=== PATIENT | male | born 1945 | race Caucasian/White ===

== ENCOUNTER 2017-02-20 17:39 | Inpatient (IN) | payer OTHER ==
[~2017-02-20] VITALS: Ht 175.3 cm; Wt 115.7 kg
--- NOTE | ~2017-02-20 | EKG ---
[place], [place] ELECTROCARDIOGRAM REPORT NAME: JILLIAN CARDONA UNIT #: [id number] ROOM: 425 DOCTOR: SRIKANTH PATINO MD BIRTHDATE: [birth year] DOS: 02/20/2017 TIME: 1816 FINDINGS: Normal sinus rhythm at a rate of 84. Normal electrocardiogram. SRIKANTH PATINO MD CM:EKGRPT:ELECTROCARDIOGRAM REPORT [id number] SRIKANTH PATINO MD
--- NOTE | ~2017-02-20 | O ---
[place], [place] OPERATIVE NOTE NAME: JILLIAN CARDONA UNIT #: [id number] ROOM: 425 DOCTOR: TAYO ALVAREZ MD BIRTHDATE: [birth year] DOS: GASTROENDOSCOPIC REPORT INDICATIONS: The patient has presented with multiple medical issues, among which was his anemia, drop in H and H, status post periodic observation of the blood count. This gentleman is 71 years old, obese. The patient has been guaiac positive. PAST MEDICAL HISTORY: Hyperlipidemia, diabetes mellitus, hypertension, obesity, osteoarthritis, renal insufficiency. PAST SURGICAL HISTORY: Appendectomy, back pain, inguinal hernia, unilateral nephrectomy. SOCIAL HISTORY: Passive smoker. Nonalcohol consumer. FAMILY HISTORY: Noncontributory. ALLERGIES: No known medication. MEDICATIONS: Medication list has been reviewed including aspirin. PROCEDURE: Today's procedure part of investigation is panendoscopy and colonoscopy. PREMEDICATION: Versed and Diprivan. SCOPE: Olympus forward-viewing colonoscope 10L video. REPORT: After putting the patient in the left lateral position and after application of lubricant to rectal pouch and digital examination, scope was introduced. Thereafter, under direct visualization, I advanced through the length of colon without difficulty. Diverticulosis of moderate degree was appreciated, mostly in left colon. Scope was negotiated to the base of cecum, ileocecal valve was defined, gradually withdrawn from ascending, transverse, descending colon. The patient extubated, tolerated procedure well. IMPRESSION: Diverticulosis of left colon, status post photographic series; short segment nonspecific colitis in sigmoid colon, status post biopsy. PLAN AND DISCUSSION: We are going to proceed with panendoscopy. [place], [place] OPERATIVE NOTE NAME: JILLIAN CARDONA UNIT #: [id number] ROOM: 425 DOCTOR: TAYO ALVAREZ MD BIRTHDATE: [birth year] TAYO ALVAREZ MD CM:OPRECORD:OPERATIVE NOTE 1122 1503 TAYO ALVAREZ MD 02/22/17 1504 interface
--- NOTE | ~2017-02-20 | O ---
[place], [place] OPERATIVE NOTE NAME: JILLIAN CARDONA UNIT #: [id number] ROOM: 425 DOCTOR: TAYO ALVAREZ MD BIRTHDATE: [birth year] DOS: GASTROENDOSCOPIC REPORT INDICATIONS: The patient has presented with chief complaint of epigastric abdominal pain, anemia, drop in H and H, undergoing investigation. PROCEDURE: Today's procedure part of investigation is panendoscopy plus biopsy and photographic series. PREMEDICATION: Versed and Diprivan. SCOPE: Olympus forward-viewing gastroscope Q10 video. REPORT: After putting the patient in the left lateral position and after application of lubricant to the scope, the scope was introduced. Thereafter, under direct visualization, I advanced through the length of esophagus without difficulty. Gastric pouch was entered. Evidence of gastritis, gastric erosions and an antral ulceration approximately 1.5 cm in diameter in about antrum. Photographed and biopsied. Duodenal bulb, second and third part within normal limits. The patient extubated, tolerated procedure well. IMPRESSION: Gastritis, gastric erosion, antral ulcer, status post biopsy. PLAN: Protonix 40 mg daily. The culprit as far as source of blood loss is upper GI finding. We are going to continue with chronic PPI therapy on this patient. Observation of H and H tomorrow, clinical reassessment. TAYO ALVAREZ MD CM:OPRECORD:OPERATIVE NOTE 1122 1504 TAYO ALVAREZ MD 02/22/17 1505 interface
[~2017-02-20 17:39] MED LIST: ALBUTEROL2.5 MG/0.5 INH; ASPIRIN325 MG PO; BENADRYL25 MG PO; CIPRO250 MG PO; DELTASONE5 MG; DOXYCYLINE50 MG PO; GLIPIZIDE10 MG PO; HYDROCHLOROTH12.5 M1 PO; LANTUS100 U/ML; LANTUS100 U/ML SC; METICORTEN1 MG; METOPROLOL SR50 MG PO; MUCINEX600 MG PO; NOVOLOG100 U/ML SC; SIMVASTATIN20 MG PO; SPIRIVA18 MCG IH
[2017-02-20 17:50] VITALS: BP 112/74
[2017-02-20] MEDS ORDERED: GLIPIZIDE10 M2 PO (17:52)
[2017-02-20 18:12] LABS: BASO % 0.4 % (0.0-1.0); EOS # 0.1 10*3/uL (0.0-0.4); EOS % 0.7 % (1.0-4.0); HEMATOCRIT 47.5 % (42.0-52.0); HEMOGLOBIN 15.5 g/dl (14.0-18.0); LYMPH # 2.4 10*3/uL (1.3-4.4); LYMPH % 26.4 % (27.0-41.0); MEAN CELL VOLUME 96.3 fl (80.0-94.0); MEAN CORPUSCULAR HGB 31.4 pg (27.0-31.0); MEAN CORPUSCULAR HGB CONC 32.6 g/dl (33.0-37.0); MEAN PLATELET VOLUME 9.3 fl (9.6-12.3); MONO # 0.8 10*3/uL (0.1-1.0); MONO % 8.6 % (3.0-9.0); NEUT # 5.8 10*3/uL (2.3-7.9); NEUT % 63.7 % (47.0-73.0); PLATELET COUNT AUTOMATED 206 10*3/uL (130-400); RED BLOOD COUNT 4.93 10*6/uL (4.50-5.90); RED CELL DISTRI WIDTH 12.5 % (0-14.5); WHITE BLOOD COUNT 9.1 10*3/uL (4.8-10.8)
[2017-02-20 18:22] VITALS: BP 105/70
[2017-02-20 18:25] LABS: PROTHROMBIN TIME 10.6 SECONDS (9.0-12.4)
[2017-02-20 18:32] LABS: ALBUMIN 2.7 gm/dl (3.1-4.5); ALKALINE PHOSPHATASE 56 U/L (45-117); BILIRUBIN, TOTAL 0.7 mg/dl (0.2-1.0); BUN 61 mg/dl (7-24); CARBON DIOXIDE 32 mmol/L (21-32); CHLORIDE 101 mmol/L (98-107); EST GLOM FILT AFRICAN AMERICAN 58 ml/min; GLUCOSE 155 mg/dL (65-99); POTASSIUM 4.2 mmol/L (3.5-5.1); SGOT/AST 13 IU/L (3-35); SGPT/ALT 14 U/L (12-78); SODIUM 137 mmol/L (136-145); TOTAL PROTEIN 6.8 gm/dL (6.4-8.2)
[2017-02-20 18:37] LABS: TROPONIN I < 0.015 ng/ml (<0.045)
[2017-02-20 19:27] VITALS: BP 101/67
[2017-02-20 20:30] VITALS: BP 131/74; BP 131/84
[2017-02-20] MEDS ORDERED: NOVOLOG FLEX100 U/ML SC (21:09)
[2017-02-20] MEDS ORDERED: HYDROCHLOROTHIA25 M1 PO (21:11)
[2017-02-20] MEDS ORDERED: VITAMIN D32000 UNIT PO (21:12)
[2017-02-21] VITALS: BP 136/64
[2017-02-21 00:18] LABS: HEMATOCRIT 42.2 % (42.0-52.0)
[2017-02-21 00:37] LABS: CKMB 0.8 ng/ml (0.5-3.6); CPK 68 U/L (39-308)
[2017-02-21 00:38] LABS: TROPONIN I < 0.015 ng/ml (<0.045)
[2017-02-21 06:33] LABS: BASO # 0.1 10*3/uL (0.0-0.1); BASO % 0.6 % (0.0-1.0); EOS # 0.2 10*3/uL (0.0-0.4); EOS % 1.6 % (1.0-4.0); HEMOGLOBIN 15.3 g/dl (14.0-18.0); LYMPH # 3.1 10*3/uL (1.3-4.4); LYMPH % 32.1 % (27.0-41.0); MEAN CELL VOLUME 94.7 fl (80.0-94.0); MEAN CORPUSCULAR HGB 31.5 pg (27.0-31.0); MEAN CORPUSCULAR HGB CONC 33.3 g/dl (33.0-37.0); MEAN PLATELET VOLUME 9.4 fl (9.6-12.3); MONO # 0.8 10*3/uL (0.1-1.0); MONO % 8.7 % (3.0-9.0); NEUT # 5.5 10*3/uL (2.3-7.9); NEUT % 56.8 % (47.0-73.0); PLATELET COUNT AUTOMATED 221 10*3/uL (130-400); RED BLOOD COUNT 4.86 10*6/uL (4.50-5.90); RED CELL DISTRI WIDTH 12.6 % (0-14.5); WHITE BLOOD COUNT 9.7 10*3/uL (4.8-10.8)
[2017-02-21 06:49] LABS: CKMB 1.2 ng/ml (0.5-3.6); CPK 71 U/L (39-308)
[2017-02-21 06:58] LABS: TROPONIN I < 0.015 ng/ml (<0.045)
[2017-02-21 07:11] LABS: ALBUMIN 2.8 gm/dl (3.1-4.5); BILIRUBIN, TOTAL 0.6 mg/dl (0.2-1.0); FREE T4 1.06 ng/dl (0.76-1.46); MAGNESIUM 2.1 mg/dL (1.5-2.1); PHOSPHOROUS 2.6 mg/dL (2.5-4.9); POTASSIUM 4.1 mmol/L (3.5-5.1); TOTAL PROTEIN 7.1 gm/dL (6.4-8.2)
[2017-02-21 07:16] LABS: THYROID STIM HORMONE (HS) 2.07 uIU/ml (0.358-4.75)
[2017-02-21 07:24] LABS: PROTHROMBIN TIME 10.5 SECONDS (9.0-12.4)
[2017-02-21 07:35] LABS: HEMOGLOBIN A1c 7.7 % (4.8-5.6)
[2017-02-21 08:00] VITALS: BP 119/75
[2017-02-21 08:24] LABS: FOLIC ACID 9.83 ng/mL (>5.38); VITAMIN D, 25-HYDROXY 30.8 ng/mL (30-100)
[2017-02-21 12:00] VITALS: BP 117/65
[2017-02-21 16:00] VITALS: BP 117/59
[2017-02-21 20:00] VITALS: BP 121/62
[2017-02-22] VITALS (9 sets, daily range): BP systolic 128–153; BP diastolic 57–79
[2017-02-22 06:07] LABS: BASO % 0.3 % (0.0-1.0); EOS # 0.1 10*3/uL (0.0-0.4); EOS % 0.5 % (1.0-4.0); HEMATOCRIT 44.5 % (42.0-52.0); HEMOGLOBIN 14.9 g/dl (14.0-18.0); IG # 0.1 10*3/uL (0.0-0.1); LYMPH # 2.4 10*3/uL (1.3-4.4); LYMPH % 18.6 % (27.0-41.0); MEAN CELL VOLUME 94.3 fl (80.0-94.0); MEAN CORPUSCULAR HGB 31.6 pg (27.0-31.0); MEAN CORPUSCULAR HGB CONC 33.5 g/dl (33.0-37.0); MEAN PLATELET VOLUME 9.8 fl (9.6-12.3); MONO # 0.8 10*3/uL (0.1-1.0); MONO % 6.3 % (3.0-9.0); NEUT # 9.4 10*3/uL (2.3-7.9); NEUT % 73.8 % (47.0-73.0); PLATELET COUNT AUTOMATED 255 10*3/uL (130-400); RED BLOOD COUNT 4.72 10*6/uL (4.50-5.90); RED CELL DISTRI WIDTH 12.7 % (0-14.5); WHITE BLOOD COUNT 12.7 10*3/uL (4.8-10.8)
[2017-02-23] VITALS: BP 138/70
[2017-02-23 06:19] LABS: BASO % 0.3 % (0.0-1.0); EOS # 0.3 10*3/uL (0.0-0.4); EOS % 4.7 % (1.0-4.0); LYMPH # 1.3 10*3/uL (1.3-4.4); LYMPH % 20.5 % (27.0-41.0); MEAN CELL VOLUME 97.1 fl (80.0-94.0); MEAN CORPUSCULAR HGB 31.9 pg (27.0-31.0); MEAN CORPUSCULAR HGB CONC 32.8 g/dl (33.0-37.0); MEAN PLATELET VOLUME 9.6 fl (9.6-12.3); MONO # 0.6 10*3/uL (0.1-1.0); MONO % 9.6 % (3.0-9.0); NEUT # 4.1 10*3/uL (2.3-7.9); NEUT % 64.6 % (47.0-73.0); RED BLOOD COUNT 3.83 10*6/uL (4.50-5.90); RED CELL DISTRI WIDTH 12.7 % (0-14.5); WHITE BLOOD COUNT 6.4 10*3/uL (4.8-10.8)
[2017-02-23 06:21] LABS: HEMATOCRIT 37.2 % (42.0-52.0); HEMOGLOBIN 12.2 g/dl (14.0-18.0); PLATELET COUNT AUTOMATED 177 10*3/uL (130-400)
[2017-02-23 08:00] VITALS: BP 113/51
[2017-02-23] MEDS ORDERED: Zofran4 MG PO (10:41)
[2017-02-23] MEDS ORDERED: PANTOPRAZOLE SO40 MG PO (10:41)
[2017-02-23 12:00] VITALS: BP 110/54
== END 2017-02-23 12:20 | disposition home or self-care (01) | DRG 377 ==
LOC: ED 17:39 → EDHOLD 18:48 → 4E 18:48
PROVIDERS: Internal Medicine; Internal Medicine Gastroenterology; Student in an Organized Health Care Education/Training Program
PROC: 0DBN8ZX Excision of Sigmoid Colon, Via Natural or Artificial Opening Endoscopic, Diagnostic (ICD-10-PCS; principal; 2017-02-22)
PROC: 0DB68ZX Excision of Stomach, Via Natural or Artificial Opening Endoscopic, Diagnostic (ICD-10-PCS; principal; 2017-02-22)
DX: K25.0 Acute gastric ulcer with hemorrhage (principal); E43 Unspecified severe protein-calorie malnutrition; I95.9 Hypotension, unspecified; E11.65 Type 2 diabetes mellitus with hyperglycemia; E11.22 Type 2 diabetes mellitus with diabetic chronic kidney disease; N18.3 Chronic kidney disease, stage 3 (moderate); D53.9 Nutritional anemia, unspecified; K57.30 Diverticulosis of large intestine without perforation or abscess without bleeding; K52.9 Noninfective gastroenteritis and colitis, unspecified; K29.70 Gastritis, unspecified, without bleeding; I12.9 Hypertensive chronic kidney disease with stage 1 through stage 4 chronic kidney disease, or unspecified chronic kidney disease; E78.5 Hyperlipidemia, unspecified; E66.9 Obesity, unspecified; M19.91 Primary osteoarthritis, unspecified site; Z79.899 Other long term (current) drug therapy; Z79.4 Long term (current) use of insulin; Z82.0 Family history of epilepsy and other diseases of the nervous system; Z80.1 Family history of malignant neoplasm of trachea, bronchus and lung; Z79.82 Long term (current) use of aspirin; Z79.84 Long term (current) use of oral hypoglycemic drugs; Z90.5 Acquired absence of kidney; Z68.37 Body mass index [BMI] 37.0-37.9, adult

== ENCOUNTER 2017-04-24 15:20 | Inpatient (IN) | payer OTHER ==
[~2017-04-24] VITALS: Ht 175.2 cm; Wt 114.3 kg
[~2017-04-24 15:20] MED LIST changes: +GLIPIZIDE10 M2 PO; +HYDROCHLOROTHIA25 M1 PO; +NOVOLOG FLEX100 U/ML SC; +PANTOPRAZOLE SO40 MG PO; +VITAMIN D32000 UNIT PO; +Zofran4 MG PO
[2017-04-24 15:26] VITALS: BP 148/80
[2017-04-24 15:48] LABS: BASO % 0.6 % (0.0-1.0); EOS # 0.2 10*3/uL (0.0-0.4); EOS % 3.1 % (1.0-4.0); HEMATOCRIT 42.5 % (42.0-52.0); HEMOGLOBIN 13.4 g/dl (14.0-18.0); LYMPH # 1.7 10*3/uL (1.3-4.4); LYMPH % 24.7 % (27.0-41.0); MEAN CELL VOLUME 90.6 fl (80.0-94.0); MEAN CORPUSCULAR HGB 28.6 pg (27.0-31.0); MEAN CORPUSCULAR HGB CONC 31.5 g/dl (33.0-37.0); MEAN PLATELET VOLUME 9.1 fl (9.6-12.3); MONO # 0.6 10*3/uL (0.1-1.0); MONO % 8.5 % (3.0-9.0); NEUT # 4.2 10*3/uL (2.3-7.9); PLATELET COUNT AUTOMATED 221 10*3/uL (130-400); RED BLOOD COUNT 4.69 10*6/uL (4.50-5.90); RED CELL DISTRI WIDTH 12.7 % (0-14.5); WHITE BLOOD COUNT 6.7 10*3/uL (4.8-10.8)
[2017-04-24 16:05] LABS: ALBUMIN 2.6 gm/dl (3.1-4.5); ALKALINE PHOSPHATASE 118 U/L (45-117); BILIRUBIN, TOTAL 0.5 mg/dl (0.2-1.0); BUN 16 mg/dl (7-24); CARBON DIOXIDE 33 mmol/L (21-32); CHLORIDE 97 mmol/L (98-107); EST GLOM FILT AFRICAN AMERICAN 52 ml/min; GLUCOSE 324 mg/dL (65-99); SGOT/AST 13 IU/L (3-35); SGPT/ALT 12 U/L (12-78); SODIUM 135 mmol/L (136-145); TOTAL PROTEIN 7.5 gm/dL (6.4-8.2); TROPONIN I < 0.015 ng/ml (<0.045)
[2017-04-24 16:18] LABS: PROTHROMBIN TIME 10.1 SECONDS (9.0-12.4)
[2017-04-24 17:05] VITALS: BP 150/81
[2017-04-24] MEDS ORDERED: Zofran4 MG PO (19:32)
[2017-04-24] MEDS ORDERED: TRAMADOL HCL50 MG PO (19:34)
[2017-04-24] MEDS ORDERED: NEURONTIN300 MG PO (19:35)
[2017-04-24] MEDS ORDERED: PROAIR HFA8.5 GM INH (19:36)
[2017-04-24 20:00] VITALS: BP 124/64
[2017-04-24 22:03] LABS: CKMB 1.1 ng/ml (0.5-3.6); CPK 76 U/L (39-308)
[2017-04-24 22:07] LABS: TROPONIN I < 0.015 ng/ml (<0.045)
[2017-04-25] VITALS: BP 129/65
[2017-04-25 05:10] VITALS: BP 125/65
[2017-04-25 06:49] LABS: BASO % 0.2 % (0.0-1.0); HEMATOCRIT 41.7 % (42.0-52.0); HEMOGLOBIN 12.9 g/dl (14.0-18.0); LYMPH # 0.7 10*3/uL (1.3-4.4); LYMPH % 13.1 % (27.0-41.0); MEAN CELL VOLUME 90.5 fl (80.0-94.0); MEAN CORPUSCULAR HGB CONC 30.9 g/dl (33.0-37.0); MEAN PLATELET VOLUME 9.3 fl (9.6-12.3); MONO % 0.6 % (3.0-9.0); NEUT # 4.4 10*3/uL (2.3-7.9); NEUT % 85.5 % (47.0-73.0); PLATELET COUNT AUTOMATED 220 10*3/uL (130-400); RED BLOOD COUNT 4.61 10*6/uL (4.50-5.90); RED CELL DISTRI WIDTH 12.7 % (0-14.5); WHITE BLOOD COUNT 5.2 10*3/uL (4.8-10.8)
[2017-04-25 07:15] LABS: FREE T4 1.17 ng/dl (0.76-1.46); PHOSPHOROUS 1.8 mg/dL (2.5-4.9); POTASSIUM 4.3 mmol/L (3.5-5.1)
[2017-04-25 07:21] LABS: THYROID STIM HORMONE (HS) 0.643 uIU/ml (0.358-4.75)
[2017-04-25 07:56] LABS: FOLIC ACID 12.15 ng/mL (>5.38); VITAMIN D, 25-HYDROXY 38.2 ng/mL (30-100)
[2017-04-25 07:57] LABS: HEMOGLOBIN A1c 8.3 % (4.8-5.6)
[2017-04-25 08:00] VITALS: BP 135/69
[2017-04-25 16:00] VITALS: BP 108/62
[2017-04-25 18:26] LABS: BILIRUBIN NEGATIVE (NEGATIVE); BLOOD NEGATIVE (NEGATIVE); CLARITY SL CLOUDY (CLEAR); COLOR YELLOW (YELLOW); GLUCOSE NEGATIVE (NEGATIVE); KETONE TRACE (NEGATIVE); LEUKO ESTERASE NEGATIVE (NEGATIVE); NITRITE NEGATIVE (NEGATIVE); PH 5.5 (5.0-9.0); PROTEIN NEGATIVE (NEGATIVE); SPECIFIC GRAVITY 1.025 (1.005-1.030); UROBILINOGEN 0.2 E.U./dl (0.2-1.0)
[2017-04-25 18:33] LABS: BACTERIA 1+; EPITHELIAL CELLS 0-2; URINE REFLEX COMMENT NO (NO); WBC 0-2 wbc/hpf (0-5)
[2017-04-25 20:00] VITALS: BP 121/55
[2017-04-26] VITALS: BP 98/54
[2017-04-26 04:00] VITALS: BP 92/58
[2017-04-26 08:00] VITALS: BP 111/51
[2017-04-26 12:00] VITALS: BP 112/55
[2017-04-26 16:00] VITALS: BP 126/67
[2017-04-26 20:00] VITALS: BP 109/52
[2017-04-27] VITALS: BP 123/57
[2017-04-27 06:48] LABS: POTASSIUM 4.8 mmol/L (3.5-5.1)
[2017-04-27 08:00] VITALS: BP 114/70
[2017-04-27 12:00] VITALS: BP 124/71
[2017-04-27 16:00] VITALS: BP 118/61
[2017-04-27 20:00] VITALS: BP 121/65
[2017-04-28] VITALS: BP 141/66
[2017-04-28 06:12] LABS: HEMATOCRIT 37.4 % (42.0-52.0); LYMPH # 0.7 10*3/uL (1.3-4.4); MEAN CELL VOLUME 88.2 fl (80.0-94.0); MEAN CORPUSCULAR HGB 28.3 pg (27.0-31.0); MEAN CORPUSCULAR HGB CONC 32.1 g/dl (33.0-37.0); MONO # 0.2 10*3/uL (0.1-1.0); NEUT # 7.2 10*3/uL (2.3-7.9); NEUT % 88.6 % (47.0-73.0); PLATELET COUNT AUTOMATED 209 10*3/uL (130-400); RED BLOOD COUNT 4.24 10*6/uL (4.50-5.90); RED CELL DISTRI WIDTH 12.8 % (0-14.5); WHITE BLOOD COUNT 8.1 10*3/uL (4.8-10.8)
[2017-04-28 08:00] VITALS: BP 148/85
[2017-04-28 12:00] VITALS: BP 110/56
[2017-04-28 16:00] VITALS: BP 116/72
[2017-04-28 20:00] VITALS: BP 115/55
[2017-04-29] VITALS: BP 121/68
[2017-04-29 05:59] LABS: HEMATOCRIT 37.3 % (42.0-52.0); IG # 0.1 10*3/uL (0.0-0.1); LYMPH # 0.5 10*3/uL (1.3-4.4); LYMPH % 7.1 % (27.0-41.0); MEAN CELL VOLUME 87.4 fl (80.0-94.0); MEAN CORPUSCULAR HGB 28.1 pg (27.0-31.0); MEAN CORPUSCULAR HGB CONC 32.2 g/dl (33.0-37.0); MONO # 0.2 10*3/uL (0.1-1.0); MONO % 3.2 % (3.0-9.0); NEUT # 6.6 10*3/uL (2.3-7.9); NEUT % 88.8 % (47.0-73.0); PLATELET COUNT AUTOMATED 208 10*3/uL (130-400); RED BLOOD COUNT 4.27 10*6/uL (4.50-5.90); RED CELL DISTRI WIDTH 12.8 % (0-14.5); WHITE BLOOD COUNT 7.5 10*3/uL (4.8-10.8)
[2017-04-29 06:14] LABS: POTASSIUM 4.4 mmol/L (3.5-5.1)
[2017-04-29 06:27] LABS: ALBUMIN 2.5 gm/dl (3.1-4.5); BILIRUBIN, TOTAL 0.4 mg/dl (0.2-1.0); TOTAL PROTEIN 6.3 gm/dL (6.4-8.2)
[2017-04-29 08:00] VITALS: BP 129/72
[2017-04-29 12:00] VITALS: BP 121/55
[2017-04-29 16:00] VITALS: BP 148/75
[2017-04-29 20:00] VITALS: BP 120/54
[2017-04-30] VITALS: BP 125/61
[2017-04-30 08:00] VITALS: BP 126/67
[2017-04-30] MEDS ORDERED: MUCINEX ER600 MG PO (09:05)
[2017-04-30] MEDS ORDERED: LEVOFLOXACIN500 MG PO (09:05)
[2017-04-30] MEDS ORDERED: DULE1ARO1 INH (09:05)
[2017-04-30] MEDS ORDERED: PREDNISONE10 MG PO (09:07)
== END 2017-04-30 10:50 | disposition home or self-care (01) | DRG 193 ==
LOC: ED 15:20 → EDHOLD 16:57 → 4E 16:57
PROVIDERS: Internal Medicine; Internal Medicine Cardiovascular Disease; Nurse Practitioner Family; Student in an Organized Health Care Education/Training Program
DX: J18.9 Pneumonia, unspecified organism (principal); N17.0 Acute kidney failure with tubular necrosis; E43 Unspecified severe protein-calorie malnutrition; J96.11 Chronic respiratory failure with hypoxia; E11.22 Type 2 diabetes mellitus with diabetic chronic kidney disease; J45.901 Unspecified asthma with (acute) exacerbation; E11.65 Type 2 diabetes mellitus with hyperglycemia; Z99.81 Dependence on supplemental oxygen; E87.1 Hypo-osmolality and hyponatremia; N18.3 Chronic kidney disease, stage 3 (moderate); I12.9 Hypertensive chronic kidney disease with stage 1 through stage 4 chronic kidney disease, or unspecified chronic kidney disease; E78.5 Hyperlipidemia, unspecified; M19.90 Unspecified osteoarthritis, unspecified site; D64.9 Anemia, unspecified; E83.39 Other disorders of phosphorus metabolism; R07.89 Other chest pain; E66.09 Other obesity due to excess calories; Z68.37 Body mass index [BMI] 37.0-37.9, adult; Z79.4 Long term (current) use of insulin; Z87.891 Personal history of nicotine dependence; Z90.49 Acquired absence of other specified parts of digestive tract; Z90.5 Acquired absence of kidney; Z80.1 Family history of malignant neoplasm of trachea, bronchus and lung; Z81.8 Family history of other mental and behavioral disorders; Z79.899 Other long term (current) drug therapy

== ENCOUNTER 2018-05-18 11:49 | Inpatient (IN) | payer OTHER ==
[~2018-05-18] VITALS: Ht 175.3 cm; Wt 121.7 kg
--- NOTE | ~2018-05-18 | CON ---
[place], [place] REPORT OF CONSULTATION NAME: JILLIAN CARDONA UNIT #: [id number] ROOM: [facility] DOCTOR: GEORGE JIMENEZ,PURNIMA BIRTHDATE: [birth year] DOS: 05/19/2018 CARDIOLOGY CONSULTATION REASON FOR CONSULTATION: Right leg pain and shortness of breath. CLINICAL HISTORY: The patient is a 72-year-old patient with history of diabetes, COPD, chronic kidney disease, came to the Emergency Room for his right leg pain. He was sent from the [facility] for his right leg pain for 2 weeks. He described it as an aching pain and diffusely the right leg is cool to touch and difficulty in ambulating. He did have some mild shortness of breath, but no orthopnea. Denies any chest pain, palpitation or dizziness. No edema. No tingling, numbness or weakness. No nausea, vomiting, or diarrhea. No headaches. No cough or hemoptysis. No bladder or bowel symptoms. REVIEW OF SYSTEMS: Review of the 10 systems negative except as mentioned above. PAST MEDICAL HISTORY: 1. Hypertension. 2. Diabetes. 3. Chronic kidney disease. 4. Dyslipidemia. 5. Anemia. 6. Non-morbid obesity. 7. COPD, on home oxygen. PAST SURGICAL HISTORY: History of back surgery, appendicectomy, hernia surgery and a unilateral nephrectomy. SOCIAL HISTORY: The patient does not use drugs. Former smoker, quit many years ago. Does not drink alcohol. FAMILY HISTORY: Nil contributory. ALLERGIES: Reviewed. HOME MEDICATIONS: Reviewed. PHYSICAL EXAMINATION: VITAL SIGNS: Blood pressure 119/60, pulse 65, respiratory rate 20, weight of 121.6 kilos, BMI 39. GENERAL: Alert, comfortable, in no acute distress. HEAD AND NECK: Supple, no distended neck veins. No carotid bruit. CHEST: Symmetrical, nontender. LUNGS: Clear to auscultation bilaterally. HEART: Regular rhythm, no S3, no palpable thrills. ABDOMEN: Benign, nontender. Bowel sounds normal. EXTREMITIES: No edema. Distal pulses are palpable. SKIN: Warm and dry. No cyanosis, no clubbing. NEUROLOGIC: Alert, oriented. No focal neurologic deficit. [place], [place] REPORT OF CONSULTATION NAME: JILLIAN CARDONA UNIT #: [id number] ROOM: [facility] DOCTOR: GEORGE JIMENEZ,PURNIMA BIRTHDATE: [birth year] RECTAL: Deferred. GENITOURINARY: Deferred. REVIEW OF THE DIAGNOSTIC TESTS: EKG showed normal sinus rhythm. His labs reviewed including troponins are negative. Thyroid function tests are normal. Hemoglobin of 14.1 and platelets 220,000. Potassium 3.7, BUN 16, and creatinine 1.57. Echo from March 2018 reviewed. His rhythm strip showed occasional sinus bradycardia. IMPRESSION: 1. Right leg pain. 2. Sinus bradycardia, asymptomatic. 3. Chronic kidney disease. 4. Diabetes type 2. 5. Chronic obstructive pulmonary disease. 6. Non-morbid obesity. RECOMMENDATIONS: 1. Continue current medications. 2. He had intermittent sinus bradycardia, asymptomatic. Currently, his blood pressure and heart rates are stable. 3. I would recommend Lexiscan stress test due to his coronary disease risk factors, this can be done as an outpatient. 4. Continue the current medications and monitor heart rates and blood pressures. 5. Right leg pain, assessment per his family physician. 6. Risk factor modification for diet, exercise and weight loss discussed. PURNIMA VAZQUEZ MD CM:CONSTR:REPORT OF CONSULTATION 04 05/21/18 0833 interface
--- NOTE | ~2018-05-18 | PR ---
[place], [place] PROGRESS NOTE NAME: JILLIAN CARDONA [facility] #: [id number] UNIT #: [id number] ROOM: 408 DOCTOR: SRIKANTH PATINO MD BIRTHDATE: [birth year] DOS: 05/21/2018 CARDIOLOGY PROGRESS NOTE SUBJECTIVE: The patient was seen at his bedside today 05/21/2018 for followup of bradycardia. He is a 72-year-old man who was admitted to the hospital with leg pain. His examination and imaging studies showed no evidence for significant peripheral vascular disease. He no longer is bradycardic and he has no symptoms of heart disease. The patient did have a myocardial perfusion study on 05/25/2017, that was a normal examination. PHYSICAL EXAMINATION: VITAL SIGNS: On exam today, his pulse is 64 and regular, blood pressure 126/70. He is afebrile. NECK: Supple. He has no jugular distention. Carotids are full. LUNGS: Respirations are unlabored. Chest is clear. HEART: Has a regular rhythm with a soft S4 gallop, but no S3 or significant murmur. PMI is not displaced. ABDOMEN: Benign. EXTREMITIES: Showed no edema. Peripheral pulses are easily palpated in the feet. He does have normal nail development and hair growth on the toes. IMPRESSION: 1. Right leg pain, not due to vascular disease. 2. History of hypertension. 3. Type 2 diabetes mellitus. PLAN: No other cardiac workup is planned at this time. We will sign off, but remain available if needed. I thank the hospitalist physicians for asking our advice regarding his care. SRIKANTH PATINO MD CM:PNTRANS [id number] SRIKANTH PATINO MD 05/22/18 0246 interface
[~2018-05-18 11:49] MED LIST changes: +DULE1ARO1 INH; +LANTUS SOL100 UNIT/1 PO; -LANTUS100 U/ML SC; +LEVOFLOXACIN500 MG PO; +MUCINEX ER600 MG PO; +NEURONTIN300 MG PO; +PREDNISONE10 MG PO; +PROAIR HFA8.5 GM INH; +TRAMADOL HCL50 MG PO
[2018-05-18 11:53] VITALS: BP 116/60
[2018-05-18 13:31] LABS: BASO # 0.1 10*3/uL (0.0-0.1); BASO % 0.8 % (0.0-1.0); EOS # 0.3 10*3/uL (0.0-0.4); EOS % 4.2 % (1.0-4.0); HEMATOCRIT 44.8 % (42.0-52.0); HEMOGLOBIN 14.1 g/dl (14.0-18.0); LYMPH % 27.6 % (27.0-41.0); MEAN CELL VOLUME 89.4 fl (80.0-94.0); MEAN CORPUSCULAR HGB 28.1 pg (27.0-31.0); MEAN CORPUSCULAR HGB CONC 31.5 g/dl (33.0-37.0); MEAN PLATELET VOLUME 9.2 fl (9.6-12.3); MONO # 0.6 10*3/uL (0.1-1.0); NEUT # 4.2 10*3/uL (2.3-7.9); NEUT % 59.1 % (47.0-73.0); PLATELET COUNT AUTOMATED 203 10*3/uL (130-400); RED BLOOD COUNT 5.01 10*6/uL (4.50-5.90); RED CELL DISTRI WIDTH 13.9 % (0-14.5); WHITE BLOOD COUNT 7.2 10*3/uL (4.8-10.8)
[2018-05-18 13:47] LABS: ACT PARTIAL THROMBO TIME 23.5 SECONDS (20.8-31.5)
[2018-05-18 13:50] LABS: ALBUMIN 2.9 gm/dl (3.1-4.5); CREATININE 1.5 mg/dL (0.70-1.30); POTASSIUM 3.5 mmol/L (3.5-5.1); TOTAL PROTEIN 7.6 gm/dL (6.4-8.2)
[2018-05-18 14:28] VITALS: BP 125/71
[2018-05-18] MEDS ORDERED: SPIRIVA RESPIMAT4 GM INH (17:23)
[2018-05-18] MEDS ORDERED: SYMB160 INH (17:23)
[2018-05-18 20:00] VITALS: BP 139/67
[2018-05-18] MEDS ORDERED: NOVOLOG10 ML SC (21:56)
[2018-05-18] MEDS ORDERED: ASPIR LOW81 MG PO (22:00)
[2018-05-19] VITALS: BP 134/65
[2018-05-19 06:50] LABS: BASO # 0.1 10*3/uL (0.0-0.1); BASO % 0.7 % (0.0-1.0); EOS # 0.3 10*3/uL (0.0-0.4); HEMATOCRIT 45.2 % (42.0-52.0); HEMOGLOBIN 14.1 g/dl (14.0-18.0); LYMPH # 2.3 10*3/uL (1.3-4.4); LYMPH % 32.9 % (27.0-41.0); MEAN CELL VOLUME 89.7 fl (80.0-94.0); MEAN CORPUSCULAR HGB CONC 31.2 g/dl (33.0-37.0); MEAN PLATELET VOLUME 9.1 fl (9.6-12.3); MONO # 0.7 10*3/uL (0.1-1.0); MONO % 9.5 % (3.0-9.0); NEUT # 3.5 10*3/uL (2.3-7.9); NEUT % 51.8 % (47.0-73.0); PLATELET COUNT AUTOMATED 220 10*3/uL (130-400); RED BLOOD COUNT 5.04 10*6/uL (4.50-5.90); RED CELL DISTRI WIDTH 13.9 % (0-14.5); WHITE BLOOD COUNT 6.8 10*3/uL (4.8-10.8)
[2018-05-19 07:26] LABS: CREATININE 1.57 mg/dL (0.70-1.30); POTASSIUM 3.7 mmol/L (3.5-5.1)
[2018-05-19 08:00] VITALS: BP 119/66
[2018-05-19 12:00] VITALS: BP 119/60
[2018-05-19 16:00] VITALS: BP 117/66
[2018-05-19] MEDS ORDERED: PROTONIX40 MG PO (16:33)
[2018-05-19 20:00] VITALS: BP 129/78
[2018-05-20] VITALS: BP 130/79
[2018-05-20 06:52] LABS: BASO # 0.1 10*3/uL (0.0-0.1); BASO % 0.8 % (0.0-1.0); EOS # 0.3 10*3/uL (0.0-0.4); EOS % 5.5 % (1.0-4.0); HEMATOCRIT 44.6 % (42.0-52.0); HEMOGLOBIN 13.8 g/dl (14.0-18.0); LYMPH # 1.7 10*3/uL (1.3-4.4); LYMPH % 28.7 % (27.0-41.0); MEAN CORPUSCULAR HGB 28.2 pg (27.0-31.0); MEAN CORPUSCULAR HGB CONC 30.9 g/dl (33.0-37.0); MEAN PLATELET VOLUME 9.3 fl (9.6-12.3); MONO # 0.6 10*3/uL (0.1-1.0); MONO % 9.6 % (3.0-9.0); NEUT # 3.3 10*3/uL (2.3-7.9); NEUT % 55.2 % (47.0-73.0); PLATELET COUNT AUTOMATED 201 10*3/uL (130-400); RED CELL DISTRI WIDTH 13.8 % (0-14.5)
[2018-05-20 07:29] LABS: ALBUMIN 2.8 gm/dl (3.1-4.5); CREATININE 1.55 mg/dL (0.70-1.30); POTASSIUM 3.8 mmol/L (3.5-5.1); TOTAL PROTEIN 7.3 gm/dL (6.4-8.2)
[2018-05-20 08:00] VITALS: BP 118/75
[2018-05-20 12:00] VITALS: BP 144/70
[2018-05-20 16:00] VITALS: BP 120/70
[2018-05-20 20:00] VITALS: BP 110/62
[2018-05-21] VITALS: BP 119/55
[2018-05-21 08:00] VITALS: BP 126/70
[2018-05-21 12:00] VITALS: BP 134/69
[2018-06-26] MEDS ORDERED: MEDROL DOSEPAK4 MG PO (11:58)
[2018-06-26] MEDS ORDERED: CYCLOBENZAPRINE10 MG PO (12:25)
== END 2018-05-21 16:12 | disposition home or self-care (01) | DRG 556 ==
LOC: ED 11:49 → 4E 15:46 → EDHOLD 15:46 → 4E 15:49
PROVIDERS: Emergency Medicine; Internal Medicine; Student in an Organized Health Care Education/Training Program
DX: M79.604 Pain in right leg (principal); E44.0 Moderate protein-calorie malnutrition; E11.22 Type 2 diabetes mellitus with diabetic chronic kidney disease; E87.2 Acidosis; E11.42 Type 2 diabetes mellitus with diabetic polyneuropathy; J44.9 Chronic obstructive pulmonary disease, unspecified; R00.1 Bradycardia, unspecified; E11.65 Type 2 diabetes mellitus with hyperglycemia; E66.9 Obesity, unspecified; N18.3 Chronic kidney disease, stage 3 (moderate); R26.2 Difficulty in walking, not elsewhere classified; E78.5 Hyperlipidemia, unspecified; M19.90 Unspecified osteoarthritis, unspecified site; I12.9 Hypertensive chronic kidney disease with stage 1 through stage 4 chronic kidney disease, or unspecified chronic kidney disease; Z79.4 Long term (current) use of insulin; Z79.84 Long term (current) use of oral hypoglycemic drugs; Z79.899 Other long term (current) drug therapy; Z87.01 Personal history of pneumonia (recurrent); Z90.49 Acquired absence of other specified parts of digestive tract; Z90.5 Acquired absence of kidney; Z80.1 Family history of malignant neoplasm of trachea, bronchus and lung; Z82.0 Family history of epilepsy and other diseases of the nervous system; Z99.81 Dependence on supplemental oxygen; Z87.891 Personal history of nicotine dependence; Z68.39 Body mass index [BMI] 39.0-39.9, adult

== ENCOUNTER → 2019-06-10 | Outpatient (CLI) | payer OTHER ==
[~2019-06-10] MED LIST changes: +ASPIR LOW81 MG PO; +CYCLOBENZAPRINE10 MG PO; +MEDROL DOSEPAK4 MG PO; +NOVOLOG10 ML SC; +PROTONIX40 MG PO; +SPIRIVA RESPIMAT4 GM INH; +SYMB160 INH
== END | disposition home or self-care (01) ==
LOC: CT 00:09
DX: K57.30 Diverticulosis of large intestine without perforation or abscess without bleeding (principal); K76.0 Fatty (change of) liver, not elsewhere classified; Z90.5 Acquired absence of kidney

== ENCOUNTER 2019-10-22 10:16 | Emergency (ER) | payer OTHER ==
[~2019-10-22] VITALS: Ht 175.2 cm; Wt 117.9 kg
[2019-10-22 10:40] LABS: BASO % 0.4 % (0.0-1.0); EOS # 0.2 10*3/uL (0.0-0.4); EOS % 2.1 % (1.0-4.0); HEMATOCRIT 41.9 % (42.0-52.0); HEMOGLOBIN 13.6 g/dl (14.0-18.0); LYMPH # 1.2 10*3/uL (1.3-4.4); LYMPH % 13.2 % (27.0-41.0); MEAN CELL VOLUME 93.5 fl (80.0-94.0); MEAN CORPUSCULAR HGB 30.4 pg (27.0-31.0); MEAN CORPUSCULAR HGB CONC 32.5 g/dl (33.0-37.0); MEAN PLATELET VOLUME 8.9 fl (9.6-12.3); MONO # 0.6 10*3/uL (0.1-1.0); MONO % 6.3 % (3.0-9.0); NEUT # 7.1 10*3/uL (2.3-7.9); NEUT % 77.8 % (47.0-73.0); PLATELET COUNT AUTOMATED 177 10*3/uL (130-400); RED BLOOD COUNT 4.48 10*6/uL (4.50-5.90); RED CELL DISTRI WIDTH 13.2 % (0-14.5); WHITE BLOOD COUNT 9.2 10*3/uL (4.8-10.8)
[2019-10-22 10:50] LABS: ACT PARTIAL THROMBO TIME 26.5 SECONDS (20.0-32.1); INTERNATIONAL NORM RATIO 0.9 (2.0-3.5)
[2019-10-22 10:57] LABS: ALBUMIN 2.8 gm/dl (3.1-4.5); ALKALINE PHOSPHATASE 107 U/L (45-117); BUN 17 mg/dl (7-24); CHLORIDE 95 mmol/L (98-107); CREATININE 1.47 mg/dL (0.70-1.30); POTASSIUM 3.6 mmol/L (3.5-5.1); SGOT/AST 15 IU/L (3-35); SGPT/ALT 16 U/L (12-78); SODIUM 137 mmol/L (136-145); TOTAL PROTEIN 7.2 gm/dL (6.4-8.2)
[2019-10-22 10:58] LABS: TROPONIN I < 0.015 ng/ml (<0.045)
[2019-10-22] MEDS ORDERED: LEVOFLOXACIN500 MG PO (14:23)
== END 2019-10-22 14:34 | disposition home or self-care (01) ==
LOC: ED 10:16
PROVIDERS: Emergency Medicine
DX: J44.9 Chronic obstructive pulmonary disease, unspecified (principal); E11.40 Type 2 diabetes mellitus with diabetic neuropathy, unspecified; E11.22 Type 2 diabetes mellitus with diabetic chronic kidney disease; I12.9 Hypertensive chronic kidney disease with stage 1 through stage 4 chronic kidney disease, or unspecified chronic kidney disease; N18.3 Chronic kidney disease, stage 3 (moderate); E66.9 Obesity, unspecified; Z79.4 Long term (current) use of insulin; Z79.82 Long term (current) use of aspirin; Z90.49 Acquired absence of other specified parts of digestive tract; Z87.891 Personal history of nicotine dependence

== ENCOUNTER 2019-11-20 11:43 | Inpatient (IN) | payer OTHER, MEDICARE ==
[2019-11-20] VITALS (7 sets, daily range): BP systolic 98–126; BP diastolic 45–61
[~2019-11-20] VITALS: Ht 165.1 cm; Wt 122.6 kg
[2019-11-20 12:55] LABS: BASO % 0.3 % (0.0-1.0); EOS % 0.1 % (1.0-4.0); HEMATOCRIT 42.6 % (42.0-52.0); HEMOGLOBIN 13.6 g/dl (14.0-18.0); LYMPH # 0.7 10*3/uL (1.3-4.4); LYMPH % 11.1 % (27.0-41.0); MEAN CELL VOLUME 94.9 fl (80.0-94.0); MEAN CORPUSCULAR HGB 30.3 pg (27.0-31.0); MEAN CORPUSCULAR HGB CONC 31.9 g/dl (33.0-37.0); MEAN PLATELET VOLUME 9.1 fl (9.6-12.3); MONO # 0.5 10*3/uL (0.1-1.0); MONO % 7.9 % (3.0-9.0); NEUT # 5.4 10*3/uL (2.3-7.9); NEUT % 80.3 % (47.0-73.0); PLATELET COUNT AUTOMATED 182 10*3/uL (130-400); RED BLOOD COUNT 4.49 10*6/uL (4.50-5.90); WHITE BLOOD COUNT 6.7 10*3/uL (4.8-10.8)
[2019-11-20 15:29] LABS: ALBUMIN 2.8 gm/dl (3.1-4.5); CREATININE 1.55 mg/dL (0.70-1.30); POTASSIUM 3.7 mmol/L (3.5-5.1); TOTAL PROTEIN 6.9 gm/dL (6.4-8.2)
--- NOTE | 2019-11-20 16:00 | NUR ---
Time: 1621 A 74 year old MALE admitted to under services of SRIKANTH HOFFMAN DO. Pt. arrived via bed from ER. Chief complaint: COLD SYMPTOMS. TYLER LEVI
--- NOTE | 2019-11-20 16:05 | NUR ---
BEDSIDE REPORT GIVEN TO TYLER PAUL AT THIS TIME.
[2019-11-20] MEDS ORDERED: PRILOSEC20 M1 PO (17:03)
[2019-11-20] MEDS ORDERED: VITAMIN D22000 UNIT PO (17:05)
[2019-11-20] MEDS ORDERED: ULTRAM50 MG PO (17:05)
[2019-11-20] MEDS ORDERED: ALBUTEROL2.5 MG/0.5 INH (17:08)
--- NOTE | 2019-11-20 17:52 | NUR ---
PHYSICIAN WAS NOTIFIED OF DR. NACHO MCNEAL. RESPONSE OF NOTIFICATION WAS OK . TYLER LEVI
--- NOTE | 2019-11-20 19:48 | NUR ---
PATIENT IS RESTING IN BED WITH EASY AND REGULAR RESPERS ON ROOM AIR. ASSESSMENT IS COMPLETE WITH NO C/O OR S/S OF DISTRESS NOTED AT THIS TIME. BED IS LOW, LOCKED, ALARMED, AND CALL LIGHT IS WITHIN REACH. WILL CONTINUE TO MONITOR, SEE SHIFT ASSESSMENT.
--- NOTE | 2019-11-20 20:15 | NUR ---
PRN TYLENOL GIVEN FOR HEADACHE. BLOOD GLUCOSE 247. CALL LIGHT IS WITHIN REACH, WILL MONITOR EFFECT.
[2019-11-21] VITALS: BP 127/72
[2019-11-21 06:04] LABS: BASO % 0.4 % (0.0-1.0); EOS % 0.2 % (1.0-4.0); HEMATOCRIT 40.2 % (42.0-52.0); HEMOGLOBIN 12.8 g/dl (14.0-18.0); LYMPH % 21.9 % (27.0-41.0); MEAN CELL VOLUME 95.3 fl (80.0-94.0); MEAN CORPUSCULAR HGB 30.3 pg (27.0-31.0); MEAN CORPUSCULAR HGB CONC 31.8 g/dl (33.0-37.0); MEAN PLATELET VOLUME 9.3 fl (9.6-12.3); MONO # 0.7 10*3/uL (0.1-1.0); MONO % 14.4 % (3.0-9.0); NEUT # 2.9 10*3/uL (2.3-7.9); NEUT % 62.9 % (47.0-73.0); PLATELET COUNT AUTOMATED 167 10*3/uL (130-400); RED BLOOD COUNT 4.22 10*6/uL (4.50-5.90); RED CELL DISTRI WIDTH 13.1 % (0-14.5); WHITE BLOOD COUNT 4.7 10*3/uL (4.8-10.8)
[2019-11-21 06:25] LABS: POTASSIUM 3.3 mmol/L (3.5-5.1)
[2019-11-21 06:38] LABS: CREATININE 1.53 mg/dL (0.70-1.30); PHOSPHOROUS 3.6 mg/dL (2.5-4.9); THYROID STIM HORMONE (HS) 1.43 uIU/ml (0.358-4.75)
[2019-11-21 08:00] VITALS: BP 134/56
[2019-11-21] MEDS ORDERED: ONGLYZA5 MG PO (08:47)
--- NOTE | 2019-11-21 09:00 | NUR ---
Camp Manager in to talk to patient. Patient states lives at home with . There are no steps in the home. Physician: [facility] Pharmacy: [facility] pharmacy Home health services: none Patient's level of ADLs: MINIMAL ASSIST Patient has working utilities: all working DME: rollator walker and cane Follow-up physician's appointment after d/c: will be made by hospitalist nurse director upon discharge Does patient want to access PORTAL?: no Discharge plan discussed with patient, he stated he lives at home with , he states she helps him with whatever he needs, he will return home with and dneies any home needs. JOSEPHINE CLIFFORD
[2019-11-21 12:00] VITALS: BP 145/58
[2019-11-21 16:00] VITALS: BP 117/53
--- NOTE | 2019-11-21 16:33 | NUR ---
BS [address] LEE GIVE 24 UNITS OF INSULIN.
[2019-11-21 20:00] VITALS: BP 123/61
--- NOTE | 2019-11-21 20:46 | NUR ---
INFORMED OF [facility] OF 488. STATED [facility] COVERAGE 22UNITS OK FOR NOW. RECHECK IN 1 HR
--- NOTE | 2019-11-21 21:45 | NUR ---
INFORMED THAT FING[facility]STICK BGM 429. STATED TO COVERAGE PER [facility].
[2019-11-22] VITALS: BP 120/58
[2019-11-22 06:50] LABS: HEMATOCRIT 42.6 % (42.0-52.0); HEMOGLOBIN 13.6 g/dl (14.0-18.0); LYMPH # 0.7 10*3/uL (1.3-4.4); LYMPH % 14.3 % (27.0-41.0); MEAN CELL VOLUME 93.6 fl (80.0-94.0); MEAN CORPUSCULAR HGB 29.9 pg (27.0-31.0); MEAN CORPUSCULAR HGB CONC 31.9 g/dl (33.0-37.0); MEAN PLATELET VOLUME 9.2 fl (9.6-12.3); MONO # 0.3 10*3/uL (0.1-1.0); MONO % 5.7 % (3.0-9.0); NEUT # 3.9 10*3/uL (2.3-7.9); NEUT % 79.8 % (47.0-73.0); PLATELET COUNT AUTOMATED 196 10*3/uL (130-400); RED BLOOD COUNT 4.55 10*6/uL (4.50-5.90); RED CELL DISTRI WIDTH 12.8 % (0-14.5); WHITE BLOOD COUNT 4.9 10*3/uL (4.8-10.8)
[2019-11-22 07:05] LABS: ALBUMIN 2.7 gm/dl (3.1-4.5); CREATININE 1.49 mg/dL (0.70-1.30)
[2019-11-22 07:08] LABS: POTASSIUM 4.8 mmol/L (3.5-5.1)
[2019-11-22 08:00] VITALS: BP 126/81
[2019-11-22 12:00] VITALS: BP 130/78
[2019-11-22 16:00] VITALS: BP 138/64
--- NOTE | 2019-11-22 18:05 | NUR ---
REPORT CALLED TO MIRELLA PAUL. PT TRANSFERRED TO ROOM 519 VIA WHEELCHAIR.
[2019-11-22 20:00] VITALS: BP 130/57
--- NOTE | 2019-11-22 20:50 | NUR ---
DR PIMENTEL NOTIFIED OF BLOOD GLUCOSE READING OF 505 AND RECHECK OF 478. STATES TO GIVE INSULIN PER SCALE. 22 UNITS WILL BE ADMINISTERED.
[2019-11-23] VITALS: BP 118/58
--- NOTE | 2019-11-23 01:36 | NUR ---
24 HOUR CHART CHECK COMPLETE.
[2019-11-23 06:14] LABS: CREATININE 1.58 mg/dL (0.70-1.30); POTASSIUM 4.5 mmol/L (3.5-5.1)
--- NOTE | 2019-11-23 07:45 | NUR ---
24 HR chart check completed.
[2019-11-23 08:00] VITALS: BP 109/51
--- NOTE | 2019-11-23 08:00 | NUR ---
Patient resting quietly with no c/o discomfort. Respirations easy and regular. Vital signs stable. No overt distress. FREDERICK MCHUGH
[2019-11-23 12:00] VITALS: BP 119/46
--- NOTE | 2019-11-23 12:00 | NUR ---
Patient resting quietly with no c/o discomfort. Respirations easy and regular. Vital signs stable. No overt distress. FREDERICK MCHUGH
[2019-11-23 16:00] VITALS: BP 114/51
--- NOTE | 2019-11-23 16:00 | NUR ---
Patient resting quietly with no c/o discomfort. Respirations easy and regular. Vital signs stable. No overt distress. FREDERICK MCHUGH
[2019-11-23 20:00] VITALS: BP 120/60
[2019-11-24] VITALS: BP 108/53
[2019-11-24 07:06] LABS: HEMATOCRIT 41.4 % (42.0-52.0); LYMPH # 0.7 10*3/uL (1.3-4.4); LYMPH % 8.8 % (27.0-41.0); MEAN CELL VOLUME 94.3 fl (80.0-94.0); MEAN CORPUSCULAR HGB 29.6 pg (27.0-31.0); MEAN CORPUSCULAR HGB CONC 31.4 g/dl (33.0-37.0); MEAN PLATELET VOLUME 9.5 fl (9.6-12.3); MONO # 0.2 10*3/uL (0.1-1.0); MONO % 2.5 % (3.0-9.0); NEUT # 6.6 10*3/uL (2.3-7.9); NEUT % 88.2 % (47.0-73.0); PLATELET COUNT AUTOMATED 195 10*3/uL (130-400); RED BLOOD COUNT 4.39 10*6/uL (4.50-5.90); RED CELL DISTRI WIDTH 12.6 % (0-14.5); WHITE BLOOD COUNT 7.5 10*3/uL (4.8-10.8)
[2019-11-24 07:21] LABS: CREATININE 1.44 mg/dL (0.70-1.30); POTASSIUM 4.7 mmol/L (3.5-5.1)
--- NOTE | 2019-11-24 07:30 | NUR ---
DR CHINCHILLA HERE TO ASSESS PATIENT AND DISCUSS PLAN OF CARE
[2019-11-24 08:00] VITALS: BP 118/53
--- NOTE | 2019-11-24 08:37 | NUR ---
24 HR chart check completed.
--- NOTE | 2019-11-24 08:51 | NUR ---
Postural drainage performed at this time. Treatment duration 15 min. Patient did not tolerate most positions due to back pain, but tolerated a few positions well. No sputum expectorated post treatment. Flutter performed post PD without any expectoration as well. Pt says he does think that the treatment is helping, and is looking forward to his next session.
--- NOTE | 2019-11-24 09:30 | NUR ---
SITTING IN RECLINER. RESPIRATIONS EASY. LUNGS DIMINISHED WITH COARSE WHEEZES. PULSE OX 93% 4L HUMIDIFIED. NON-PROD COUGH. +1 BLE EDEMA, DECLINES TEDS. CALL LIGHT WITHIN REACH. NO VOICED COMPLAINTS
[2019-11-24 12:00] VITALS: BP 117/55
--- NOTE | 2019-11-24 13:00 | NUR ---
VISITING WITH FAMILY
--- NOTE | 2019-11-24 14:00 | NUR ---
DR GRIFFITH HERE TO ASSESS PATIENT AND DISCUSS PLAN OF CARE
[2019-11-24 16:00] VITALS: BP 130/60
--- NOTE | 2019-11-24 16:00 | NUR ---
PHYSICAL THERAPY PT EVAL COMPLETED ON LEVEL 5; FULL EVAL TO FOLLOW. RECOMMEND PT WHILE HERE TO ADDRESS DECREASED FUNCTIONAL MOBILITY. PT EVAL IS MODERATE COMPLEXITY: [id number]. D/C RECOMMENDATIONS ARE HOME WITH HH AND FAMILY SUPPORT. THANK YOU FOR REFERRAL SAGRARIO DUNCAN PT
--- NOTE | 2019-11-24 19:00 | NUR ---
VISITING WITH FAMILY
--- NOTE | 2019-11-24 19:24 | NUR ---
POSTURAL DRAINAGE PERFORMED, FULL TREATMENT DONE WITH NO COMPLAINTS. SAT UP AT EDGE OF BED AFTER EACH SIDE, TO PERFORM COUGH. SCANT AMOUNT OF PALE WHITE AFTER ONE SIDE, NONE AFTER THE OTHER. FLUTTER VALVE AFTER WITH NO EXPECTERATION. BRONCHOSCOPY IN THE AM.
[2019-11-24 20:00] VITALS: BP 133/63
--- NOTE | 2019-11-24 20:00 | NUR ---
Patient resting quietly with no c/o discomfort. Respirations easy and regular. Dyspnea on exertion noted as patient transferred self from bed to bed side chair. Pt educated that he will be NPO after midnight for bronchoscopy with Dr. Velez in AM (11/25). Vital signs stable. No complaints at this time. FLORES MICHELLE
[2019-11-25] VITALS (11 sets, daily range): BP systolic 89–147; BP diastolic 53–82
[2019-11-25 06:29] LABS: BASO % 0.1 % (0.0-1.0); HEMATOCRIT 43.5 % (42.0-52.0); HEMOGLOBIN 13.7 g/dl (14.0-18.0); LYMPH # 0.7 10*3/uL (1.3-4.4); LYMPH % 8.8 % (27.0-41.0); MEAN CELL VOLUME 95.4 fl (80.0-94.0); MEAN CORPUSCULAR HGB CONC 31.5 g/dl (33.0-37.0); MEAN PLATELET VOLUME 9.3 fl (9.6-12.3); MONO # 0.2 10*3/uL (0.1-1.0); MONO % 2.7 % (3.0-9.0); NEUT # 6.8 10*3/uL (2.3-7.9); NEUT % 87.8 % (47.0-73.0); PLATELET COUNT AUTOMATED 195 10*3/uL (130-400); RED BLOOD COUNT 4.56 10*6/uL (4.50-5.90); RED CELL DISTRI WIDTH 12.7 % (0-14.5); WHITE BLOOD COUNT 7.7 10*3/uL (4.8-10.8)
[2019-11-25 06:58] LABS: CREATININE 1.41 mg/dL (0.70-1.30); POTASSIUM 4.7 mmol/L (3.5-5.1)
--- NOTE | 2019-11-25 07:30 | NUR ---
VITALS WITHIN NORMAL RANGES. A&O X3. KIRILL. PO2 95% 4L/NC. HEART SOUNDS NORMAL. LUNG SOUNDS DIMINISHED WITH I&E WHEEZING THROUGHOUT. BOWEL SOUNDS ACTIVE X4. ABDOMEN NONTENDER, NONDISTENDED. RAC IV SITE PATENT. PT UNABLE TO RATE PAIN. PT STATES "ITS JUST NEUROPATHY PAIN. I HAVE IT ALL THE TIME BUT ITS NOT UNBEARABLE." SKIN TUGOR GOOD, NONTENTED. TRACE, NONPITTING EDMEA IN BILAT LOWER LEGS. POSITIVE PERIPHERAL PULSES. [place] ZABALA SPNRCC.
--- NOTE | 2019-11-25 08:08 | NUR ---
METOPROLOL 50MG PO GIVEN PER REQUEST OF MAGNOLIA PAULCANDY CATCHER. BP 134/61. [place] ZABALA SPNRCC.
--- NOTE | 2019-11-25 08:11 | NUR ---
PT DOWN FOR SURGERY AT THIS TIME.
--- NOTE | 2019-11-25 09:00 | NUR ---
case management attempted to visit with patient, he was out of room for a bronch, case mangement will see at a later time
--- NOTE | 2019-11-25 09:45 | NUR ---
RECEIVED REPORT FROM SURGERY. AWAITING PTS ARRIVAL TO THE FLOOR.
--- NOTE | 2019-11-25 09:55 | NUR ---
PT RETURNED FROM OR. ALL VITALS STABLE. NO STRIDDER HEARD. WILL CONTINUE TO ASSESS. [place] ZABALA SPCC
--- NOTE | 2019-11-25 09:55 | NUR ---
PT BACK TO THE FLOOR FROM SURGERY AT THIS TIME. ASSESSMENT COMPLETE. PT HAS NO COMPLAINTS AND DENIES ANY PAIN. CALL LIGHT WITHIN REACH. WILL CONTINUE TO MONITOR.
--- NOTE | 2019-11-25 10:30 | NUR ---
MARLA LILLY PT BACK FROM [facility] AND HAS NO DIET IN. PER HE WILL LOOK AND PUT SOMETHING IN.
--- NOTE | 2019-11-25 12:39 | NUR ---
PT RESTING IN BED. NO COMPLAINTS AT THIS TIME. CALL LIGHT WITHIN REACH. WILL CONTINUE TO MONITOR.
--- NOTE | 2019-11-25 13:11 | NUR ---
PT RESTING IN BED WITH TV ON. NO COMPLAINTS AT THIS TIME. WILL CONTINUE TO ASSESS. [place] ZABALA SPONEIDACC.
--- NOTE | 2019-11-25 16:30 | NUR ---
PHYSICAL THERAPY TREATMENT TIME: 4:15 PM - 4:30 PM 15 MINUTES TOTAL Patient presented to therapy in sitting position with 3 liters of spO2 VIA NASAL CANULA and report of feeling much better and being ready to go home. Patient was idnetified by name and on wristband. Patient gives informed consent for treatment. Patient performed sit to stand from bedside chair with SBA. PATIENT AMBULATED 80' X 1 with no assistive device and and CLose Supervision with good management of O2 long O2 line and no LOB or SOB. Patient's O2 SAT was taken and recorded as 91% post ambulatign 80' x 1 in room only due to isolation precautions. Patient's O2 SAT increased to 94% and pulse to 57 within 30 seconds of seated rest break. Patient was left in bedside chair with call light within reach. PATIENT IS AMBULATORY IN ROOM THROUGHOUT THE DAY BY HIMSELF. Patient was 1:1 with this FOOD PHOTOGRAPHER for 15 minutes total. JD KINNEY FOOD PHOTOGRAPHER
--- NOTE | 2019-11-25 20:03 | NUR ---
24 HR chart check completed.
--- NOTE | 2019-11-25 20:45 | NUR ---
SITTING IN RECLINER. NO DISTRESS NOTED. RESPIRATIONS EASY. LUNGS DIMINISHED WITH TIGHT I&E WHEEZES. PULSE OX 97% 4L HUMIDIFIED. INFREQUENT COUGH. TRACE BLE EDEMA. CALL LIGHT WITHIN REACH. NO VOICED COMPLAINTS
--- NOTE | 2019-11-25 21:14 | NUR ---
PATIENT ABLE TO TOLERATE CPT FOR 10 MINUTES. NON PRODUCTIVE COUGH. FLUTTER USED AFTER PD.
[2019-11-26] VITALS: BP 134/61
--- NOTE | 2019-11-26 | NUR ---
SLEEPING. NO ACUTE DISTRESS NOTED. RESPIRATIONS EASY. O2 IN USE. CALL LIGHT WITHIN REACH.
--- NOTE | 2019-11-26 06:00 | NUR ---
SLEPT THROUGHOUT NIGHT WITH NO DISTRESS NOTED. RESPIRATIONS EASY. O2 IN USE. CALL LIGHT WITHIN REACH. NO VOICED COMPLAINTS THIS SHIFT
[2019-11-26 08:00] VITALS: BP 150/66
--- NOTE | 2019-11-26 09:00 | NUR ---
case management visits with patient, he is sitting in a chair in the room, he states he will be discharged to home tomorrow, again discussed with him VNA and he declined any home services at this time, case management will follow
--- NOTE | 2019-11-26 11:15 | NUR ---
Occupational therapy orders received and OT screening completed. Per patient, he lives in a multi-level home, first floor set-up, has a stair life, walk-in shower with a seat, and lives with family who assist PRN. Patient demonstrated good safety awareness, independent ADLs, independent functional transfers and mobility. Patient was 93% at start of screen and concluded eval at 96% on 3LO2. Secondary to patient's independent functional status, his OT orders will be discharged at this time. Patient notified of d/c from OT and was agreeable. Thank you. Rachel Castellano, OTR/L
[2019-11-26 12:00] VITALS: BP 128/66
--- NOTE | 2019-11-26 12:46 | NUR ---
PHYSICAL THERAPY Patient was approached for physical therapy session at 12:45 pm and patient declined treatment due to already walking 3 times today and not feeling like doing anymore today. Patient was cleared by nursing to ambulate in hallway because he had received MALIA-FLU for a certain number of dosages. He was previously in isolation. Will check back with patient tomorrow. JD KINNEY LABORER LABORATORY
[2019-11-26 15:10] LABS: ACID FAST SPEC PROCESSING Concentration (.)
[2019-11-26 16:00] VITALS: BP 111/64
[2019-11-26 20:00] VITALS: BP 127/57
[2019-11-27] VITALS: BP 145/61
[2019-11-27 08:00] VITALS: BP 132/72
--- NOTE | 2019-11-27 09:00 | NUR ---
case management visits with patient, he stated he is returning home today and denies any home needs, case management will follow
[2019-11-27] MEDS ORDERED: PREDNISONE10 MG PO (11:34)
[2019-11-27] MEDS ORDERED: DOXYCYCLINE100 M3 PO (11:34)
--- NOTE | 2019-11-27 13:23 | NUR ---
PATIENT DISCHARGED VIA WHEELCHAIR. ALL BELONINGS WITH THEM. HEPLOCK REMOVED. CINDY TAPIA SPNRCC
--- NOTE | 2019-11-28 07:35 | NUR ---
PHYSICAL THERAPY CO-SIGN I approve of the Physical Therapy notes written above. Sofie James PT
== END 2019-11-27 13:23 | disposition home or self-care (01) | DRG 193 ==
LOC: ED 11:43 → EDHOLD 15:11 → 4E 15:11 → 5E 15:11 → 4E 15:20 → 5E 11-22 18:38
PROVIDERS: Emergency Medicine; Family Medicine; Internal Medicine Critical Care Medicine; Student in an Organized Health Care Education/Training Program; ADMIT Internal Medicine
PROC: 0B948ZZ Drainage of Right Upper Lobe Bronchus, Via Natural or Artificial Opening Endoscopic (ICD-10-PCS; principal; 2019-11-25)
PROC: 0B958ZZ Drainage of Right Middle Lobe Bronchus, Via Natural or Artificial Opening Endoscopic (ICD-10-PCS; principal; 2019-11-25)
PROC: 0B918ZZ Drainage of Trachea, Via Natural or Artificial Opening Endoscopic (ICD-10-PCS; principal; 2019-11-25)
PROC: 0B988ZZ Drainage of Left Upper Lobe Bronchus, Via Natural or Artificial Opening Endoscopic (ICD-10-PCS; principal; 2019-11-25)
PROC: 0B9B8ZZ Drainage of Left Lower Lobe Bronchus, Via Natural or Artificial Opening Endoscopic (ICD-10-PCS; principal; 2019-11-25)
PROC: 0B928ZZ Drainage of Carina, Via Natural or Artificial Opening Endoscopic (ICD-10-PCS; principal; 2019-11-25)
PROC: 0B938ZZ Drainage of Right Main Bronchus, Via Natural or Artificial Opening Endoscopic (ICD-10-PCS; principal; 2019-11-25)
PROC: 0B968ZZ Drainage of Right Lower Lobe Bronchus, Via Natural or Artificial Opening Endoscopic (ICD-10-PCS; principal; 2019-11-25)
PROC: 0B998ZZ Drainage of Lingula Bronchus, Via Natural or Artificial Opening Endoscopic (ICD-10-PCS; principal; 2019-11-25)
DX: J10.1 Influenza due to other identified influenza virus with other respiratory manifestations (principal); N17.0 Acute kidney failure with tubular necrosis; J96.21 Acute and chronic respiratory failure with hypoxia; J44.1 Chronic obstructive pulmonary disease with (acute) exacerbation; E44.0 Moderate protein-calorie malnutrition; Z68.41 Body mass index [BMI] 40.0-44.9, adult; J44.0 Chronic obstructive pulmonary disease with (acute) lower respiratory infection; T17.590A Other foreign object in bronchus causing asphyxiation, initial encounter; E87.3 Alkalosis; J18.9 Pneumonia, unspecified organism; J20.9 Acute bronchitis, unspecified; N18.3 Chronic kidney disease, stage 3 (moderate); I12.9 Hypertensive chronic kidney disease with stage 1 through stage 4 chronic kidney disease, or unspecified chronic kidney disease; D72.810 Lymphocytopenia; E78.5 Hyperlipidemia, unspecified; E11.22 Type 2 diabetes mellitus with diabetic chronic kidney disease; M19.90 Unspecified osteoarthritis, unspecified site; D64.9 Anemia, unspecified; E11.65 Type 2 diabetes mellitus with hyperglycemia; E11.42 Type 2 diabetes mellitus with diabetic polyneuropathy; X58.XXXA Exposure to other specified factors, initial encounter; T38.0X5A Adverse effect of glucocorticoids and synthetic analogues, initial encounter; E66.01 Morbid (severe) obesity due to excess calories; Y92.89 Other specified places as the place of occurrence of the external cause; Y93.89 Activity, other specified; Z79.899 Other long term (current) drug therapy; Z79.82 Long term (current) use of aspirin; Z79.4 Long term (current) use of insulin; Z80.1 Family history of malignant neoplasm of trachea, bronchus and lung; Z82.0 Family history of epilepsy and other diseases of the nervous system; Z87.891 Personal history of nicotine dependence; Z90.5 Acquired absence of kidney

== ENCOUNTER → 2025-08-12 | Outpatient (CLI) | payer OTHER ==
[~2025-08-12] MED LIST changes: +AEROECLIPSE II1 EACH MC; +ALBUTEROL2.5 MG/0.5 NEB; +DOXYCYCLINE100 M3 PO; +HYDR25T PO; +Ipratropium Brom3 ML INH; -LANTUS SOL100 UNIT/1 PO; +LANTUS SOL100 UNIT/1 SC; +LASIX40 MG PO; +LEVOFLOXACIN750 M2 PO; +ONGLYZA5 MG PO; +PRILOSEC20 M1 PO; +ULTRAM50 MG PO; +VITAMIN D22000 UNIT PO
== END | disposition home or self-care (01) ==
LOC: RAD 16:50
PROVIDERS: ATTEND Internal Medicine Critical Care Medicine
DX: J98.11 Atelectasis (principal); J44.9 Chronic obstructive pulmonary disease, unspecified; J45.40 Moderate persistent asthma, uncomplicated; J96.11 Chronic respiratory failure with hypoxia; J96.12 Chronic respiratory failure with hypercapnia; Z99.81 Dependence on supplemental oxygen; Z80.1 Family history of malignant neoplasm of trachea, bronchus and lung; Z68.39 Body mass index [BMI] 39.0-39.9, adult; Z87.891 Personal history of nicotine dependence